=== PATIENT | female | born 1960 | race Caucasian/White ===

== ENCOUNTER 2022-01-09 07:22 | Outpatient (CLI) | payer BC, SELFPAY ==
--- NOTE | ~2022-01-09 | XR_ITS ---
XR hip LT min 2V DATE: 01/09/2022 08:06 INDICATION: Low back pain, left hip pain TECHNIQUE: AP and lateral views COMPARISON: None FINDINGS: Mild left hip joint space narrowing and spurring consistent with mild left hip osteoarthrit is. No left rib fracture, dislocation, avascular necrosis or bone destruction. The pubic symphysis and sacroiliac joints are intact. Moderate degenerative disc disease is noted at L4-5 IMPRESSION: Mild left hip osteoarthritis Reviewed, dictated and finalized at location A. P MAKER COOK
--- NOTE | ~2022-01-09 | MM_ITS ---
EXAMINATION: MM screening mich BI w daniele HISTORY: Screening TECHNIQUE: Craniocaudal and mediolateral oblique 3-D tomosynthesis images were obtained and synthetic 2-D images were generated. CAD analysis was submitted and interpreted. COMPARISON: No prior mammogram is available for comparison at this institution. BREAST PARENCHYMAL COMPOSITION: There are scattered areas of fibroglandular density. FINDINGS: There is no evidence of suspicious mass, calcification, or architectural distortion to sugg est malignancy in either breast. There has been no suspicious interval change. IMPRESSION: 1. No mammographic evidence of malignancy. 2. Recommend routine screening mammography in one year. BI-RADS Category 1: Negative Reviewed, dictated and finalized at location A. AROO
--- NOTE | ~2022-01-09 | XR_ITS ---
EXAMINATION: XR lumbar spine 2-3V DATE: 01/09/2022 08:06 INDICATION: Low back and hip pain TECHNIQUE: Anteroposterior and lateral views of the lumbar spine, and cone-down lateral view of the l umbosacral junction were obtained. COMPARISON: None. FINDINGS: Bone alignment is normal. There are 2 mm of retrolisthesis of L3 on L4 and 3 mm of retrolis thesis of L4 on L5 and L5 on S1. The vertebral body heights are maintained. There is moderate loss of intervertebral disc space height at L4-5 and L5-S1. Small degenerative osteophytes project from the anterior endplates of multiple vertebral bodies. There is moderate facet joint osteoarthritis of the lower lumbar spine. IMPRESSION: 1. Moderate lumbar spondylosis without acute findings. Reviewed, dictated and finalized at location F. [employer]
== END 2022-01-09 07:23 | disposition home or self-care (01) ==
LOC: CHSIMG 07:26
PROVIDERS: PCP Internal Medicine; Visit Provider Internal Medicine
DX: M54.50 Low back pain, unspecified (principal); M25.552 Pain in left hip; Z12.31 Encounter for screening mammogram for malignant neoplasm of breast
CPT/HCPCS: 72100; 73502; 77063; 77067